=== PATIENT | female | born 1960 | race Two or more races ===

== ENCOUNTER 2022-09-30 17:52 | Inpatient (IN) | payer MEDICARE, OTHER ==
[~2022-09-30] VITALS: Ht 157.5 cm; Wt 98.0 kg
[2022-09-30 18:23] LABS: Basophils # (auto) 0 10 ^3/uL (0-0.2); Basophils % (auto) 0.3 % (0.0-2.0); Eosinophils # (auto) 0 10 ^3/uL (0-0.8); Eosinophils % (auto) 0.1 % (0.0-7.0); Hematocrit 41.6 % (36.0-46.0); Hemoglobin 13.4 g/dL (12.2-16.2); Lymphocytes # (auto) 0.3 10 ^3/uL (0.4-5.4); Lymphocytes % (auto) 2.1 % (10.0-50.0); Mean Corpuscular Hemoglobin 28.2 pg (28.0-32.0); Mean Corpuscular Hgb Conc. 32.2 g/dL (32.0-36.0); Mean Corpuscular Volume 87.7 fL (80.0-100.0); Monocytes % (auto) 6.7 % (0.0-12.0); Neutrophils # (auto) 13.8 10 ^3/uL (1.6-8.6); Neutrophils % (auto) 90.8 % (37.0-80.0); Red Blood Cells 4.74 10^6/uL (4.0-5.20); Red Cell Distribution Width 16.2 % (11.8-14.3); White Blood Cell 15.2 10^3/uL (4.4-10.8)
[2022-09-30 18:40] LABS: INR 1.08 (0.9-1.15); Partial Thromboplastin Time 26.1 SEC (24.5-34.5); Prothrombin Time 11.3 sec (9.3-11.8)
[2022-09-30 18:41] LABS: Albumin 2.6 g/dL (3.4-5.0); BUN/Creatinine Ratio 17.1 (10.0-20.0); Calcium 8.7 mg/dL (8.5-10.1); Magnesium 1.9 mg/dL (1.6-2.6); Potassium 4.3 mmol/L (3.5-5.1)
[2022-09-30 18:44] LABS: Bilirubin, Total 0.9 mg/dL (0.2-1.0); Total Protein 6.1 g/dL (6.4-8.2)
[2022-09-30 19:08] VITALS: PULSE 84; RESP 18; O2SAT 95
[2022-09-30] MEDS ORDERED: SODIUM CHLORIDE 0.9% 2,750 ML IV ONE (19:15)
[2022-09-30] MEDS ORDERED: ALBUTEROL SULF 2.5 MG/0.5ML(0.5%) NEB SOLN NEB ONE (19:15)
[2022-09-30] MEDS ORDERED: InsuLIN REG 1unit/0.01ml Soln (100units/ml) IV ONE (19:15)
[2022-09-30] MEDS ORDERED: DexAMETHasone SOD PHOS 10MG/1ML VIAL INJ IV ONE (19:30)
[2022-09-30] MEDS ORDERED: VANCOMYCIN PER PHARMACY 0 MG IV SCH (19:30)
[2022-09-30 19:58] LABS: Blood Alcohol < 3.0 mg/dL (<10)
[2022-09-30 20:59] LABS: Base Excess 1.6 mmol/L (-2.0-2.0)
[2022-09-30 21:39] LABS: Lactic Acid w/Reflex 2.4 mmol/L (0.4-2.0)
[2022-09-30] MEDS ORDERED: ACETAMINOPHEN 325 MG TAB PO PRN (22:15)
[2022-09-30] MEDS ORDERED: ONDANSETRON HCL 4 MG/2 ML VIAL IV PRN (22:15)
[2022-09-30] MEDS ORDERED: DOCUSATE SOD 100 MG CAP PO PRN (22:15)
[2022-09-30] MEDS ORDERED: DEXTROSE (50%) 50ML SYRG IV PRN (22:15)
[2022-09-30] MEDS: VANCOMYCIN 1GM/250ML 250 ML IV SCH (22:44)
[2022-09-30] MEDS: SODIUM CHLORIDE 0.9% 1,000 ML IV SCH (22:44)
[2022-09-30] MEDS: PIPERACILLIN-TAZOB 3.375GM 100 ML IV SCH (23:35)
[2022-09-30] MEDS ORDERED: NITROGLYCERIN 0.4 MG SL TAB SL PRN (23:45)
[2022-09-30] MEDS ORDERED: MORPHINE SULFATE INJ 2 MG/ml SYRG IV PRN (23:45)
[2022-09-30] MEDS ORDERED: ALBUMIN 25% 100 ML IV ONE (23:45)
[2022-10-01] MEDS ORDERED: DexAMETHasone INJECTION 10 MG in SODIUM CHL 3% 500 ML IV SCH ×2
[2022-10-01] MEDS: ACCU-CHEK COMFORT CURVE STRIP VI SCH ×7 (00:18→23:57)
[2022-10-01] MEDS: InsuLIN REG 1unit/0.01ml Soln (100units/ml) SC SCH ×7 (00:18→23:58)
[2022-10-01 03:00] VITALS: PULSE 85; RESP 19; O2SAT 92
[2022-10-01] MEDS: INSULIN LANTUS (GLARGINE) 1 /0.01ml (100units/ml) SC SCH ×3 (05:33→22:50)
[2022-10-01 06:26] LABS: Basophils # (auto) 0 10 ^3/uL (0-0.2); Eosinophils # (auto) 0 10 ^3/uL (0-0.8); Hemoglobin 13.3 g/dL (12.2-16.2); Lymphocytes # (auto) 0.2 10 ^3/uL (0.4-5.4); Lymphocytes % (auto) 1.4 % (10.0-50.0); Mean Corpuscular Hemoglobin 28.6 pg (28.0-32.0); Mean Corpuscular Hgb Conc. 32.3 g/dL (32.0-36.0); Mean Corpuscular Volume 88.4 fL (80.0-100.0); Monocytes # (auto) 0.2 10 ^3/uL (0-1.3); Monocytes % (auto) 1.5 % (0.0-12.0); Neutrophils # (auto) 14.9 10 ^3/uL (1.6-8.6); Neutrophils % (auto) 97.1 % (37.0-80.0); Red Blood Cells 4.64 10^6/uL (4.0-5.20); Red Cell Distribution Width 16.4 % (11.8-14.3); White Blood Cell 15.3 10^3/uL (4.4-10.8)
[2022-10-01 06:43] LABS: Albumin 2.9 g/dL (3.4-5.0); Potassium 4.1 mmol/L (3.5-5.1)
[2022-10-01 06:46] LABS: Bilirubin, Total 0.7 mg/dL (0.2-1.0); Total Protein 7.1 g/dL (6.4-8.2)
[2022-10-01 08:01] VITALS: PULSE 70; RESP 20; O2SAT 94
[2022-10-01] MEDS ORDERED: [UNRECOGNIZED DRUG - CODE] PO (09:33)
[2022-10-01] MEDS ORDERED: MYCO500T PO (09:33)
[2022-10-01] MEDS: PIPERACILLIN-TAZOB 3.375GM 100 ML IV SCH ×2 (09:42→14:01)
[2022-10-01] MEDS: LEVOTHYROXINE SODIUM 25 MCG TAB PO SCH (09:42)
[2022-10-01] MEDS ORDERED: TACROLIMUS 0.5 MG CAP PO SCH (10:00)
[2022-10-01] MEDS: SODIUM CHLORIDE 0.9% 1,000 ML IV SCH ×2 (10:12→15:10)
[2022-10-01] MEDS: HEPARIN SODIUM (PORCINE) 5000 UNITS/ML 1ML VIAL SC SCH ×2 (10:16→23:38)
[2022-10-01] MEDS: DexAMETHasone SOD PHOS 10MG/1ML VIAL INJ IV SCH (10:16)
[2022-10-01] MEDS ORDERED: AML5T PO (10:39)
[2022-10-01] MEDS ORDERED: METO25TA93 PO (10:39)
[2022-10-01] MEDS ORDERED: TRAM50TA2 PO (10:39)
[2022-10-01] MEDS ORDERED: GABA250S7 PO (10:39)
[2022-10-01] MEDS ORDERED: PANT1INJ3 IV (10:39)
[2022-10-01] MEDS ORDERED: ATOR40TA52 PO (10:39)
[2022-10-01] MEDS ORDERED: PRED1PAK8 PO (10:39)
[2022-10-01 10:49] LABS: Amphetamine Screen, Urine NEGATIVE (NEGATIVE); Barbiturate Scree,Urine NEGATIVE (NEGATIVE); Benzodiazephine Screen, Urine NEGATIVE (NEGATIVE); Cannabinoid Screen, Urine NEGATIVE (NEGATIVE); Cocaine Screen, Urine NEGATIVE (NEGATIVE); Opiate Scree,Urine NEGATIVE (NEGATIVE); Phencyclidine Screen, Urine NEGATIVE (NEGATIVE)
[2022-10-01] MEDS: MYCOPHENOLATE 500 MG TAB PO SCH ×2 (11:21→23:44)
[2022-10-01] MEDS: TACROLIMUS 0.5 MG CAP PO SCH ×2 (11:21→23:44)
[2022-10-01 12:05] LABS: Urine Bacteria FEW /hpf (None Seen); Urine Blood 2+ /uL (Negative); Urine Budding Yeast LOADED /hpf (None Seen); Urine Clarity HAZY (Clear); Urine Color Yellow (Yellow); Urine Mucus FEW (None Seen); Urine Protein, UAD 1+ (Negative); Urine Specific Gravity 1.018 (1.001-1.035); Urine Urobilinogen Normal (Negative); Urine WBC 136 /hpf (0 - 5); Urine pH 5.5 (5.0-8.0)
[2022-10-01 19:50] VITALS: PULSE 77; RESP 18; O2SAT 97
[2022-10-01] MEDS: VANCOMYCIN 1GM/250ML 250 ML IV SCH (23:32)
[2022-10-02] VITALS (8 sets, daily range): BP systolic 129–142; BP diastolic 50–77; PULSE 69–80; RESP 18–20; TEMP 97.8–98.2; O2SAT 92–98
[2022-10-02] MEDS: PIPERACILLIN-TAZOB 3.375GM 100 ML IV SCH ×3 (01:29→16:59)
[2022-10-02] MEDS: SODIUM CHLORIDE 0.9% 1,000 ML IV SCH ×3 (02:40→19:20)
[2022-10-02] MEDS: ACCU-CHEK COMFORT CURVE STRIP VI SCH ×5 (04:25→20:00)
[2022-10-02] MEDS: InsuLIN REG 1unit/0.01ml Soln (100units/ml) SC SCH ×6 (04:27→23:57)
[2022-10-02 05:50] LABS: Calcium 9.3 mg/dL (8.5-10.1)
[2022-10-02 05:52] LABS: BUN/Creatinine Ratio 23.7 (10.0-20.0)
[2022-10-02] MEDS: LEVOTHYROXINE SODIUM 25 MCG TAB PO SCH (06:12)
[2022-10-02] MEDS: DexAMETHasone SOD PHOS 10MG/1ML VIAL INJ IV SCH (08:59)
[2022-10-02] MEDS: HEPARIN SODIUM (PORCINE) 5000 UNITS/ML 1ML VIAL SC SCH ×2 (09:13→21:55)
[2022-10-02] MEDS: INSULIN LANTUS (GLARGINE) 1 /0.01ml (100units/ml) SC SCH ×2 (09:14→22:00)
[2022-10-02] MEDS: TACROLIMUS 0.5 MG CAP PO SCH ×2 (10:21→21:56)
[2022-10-02] MEDS: MYCOPHENOLATE 500 MG TAB PO SCH ×2 (10:21→21:56)
[2022-10-02] MEDS ORDERED: hydrALAZINE HCL 20 MG/ML VL IV PRN (18:00)
[2022-10-02] MEDS: ATORVASTATIN 20 MG TAB PO SCH (18:01)
[2022-10-02] MEDS: METOPROLOL SUCCINATE XL 50 MG TAB PO SCH (21:57)
[2022-10-02] MEDS: ACETAMINOPHEN 325 MG TAB PO PRN (21:57)
[2022-10-02] MEDS: VANCOMYCIN 1GM/250ML 250 ML IV SCH (22:00)
[2022-10-03] VITALS (7 sets, daily range): BP systolic 119–160; BP diastolic 39–95; PULSE 63–68; RESP 16–18; TEMP 97.3–97.7; O2SAT 93–96
[2022-10-03] MEDS: PIPERACILLIN-TAZOB 3.375GM 100 ML IV SCH ×3 (01:00→17:26)
[2022-10-03] MEDS: InsuLIN REG 1unit/0.01ml Soln (100units/ml) SC SCH ×5 (04:00→20:00)
[2022-10-03] MEDS: ACCU-CHEK COMFORT CURVE STRIP VI SCH ×6 (04:00→20:00)
[2022-10-03] MEDS: LEVOTHYROXINE SODIUM 25 MCG TAB PO SCH (06:01)
[2022-10-03] MEDS: MYCOPHENOLATE 500 MG TAB PO SCH ×2 (09:17→21:35)
[2022-10-03] MEDS: TACROLIMUS 0.5 MG CAP PO SCH ×2 (09:18→21:35)
[2022-10-03] MEDS: amLODIPine BESYLATE 5 MG TAB PO SCH (09:19)
[2022-10-03] MEDS: HEPARIN SODIUM (PORCINE) 5000 UNITS/ML 1ML VIAL SC SCH ×2 (09:29→21:43)
[2022-10-03] MEDS: INSULIN LANTUS (GLARGINE) 1 /0.01ml (100units/ml) SC SCH ×2 (09:30→21:43)
[2022-10-03 09:57] LABS: Basophils # (auto) 0 10 ^3/uL (0-0.2); Basophils % (auto) 0.2 % (0.0-2.0); Eosinophils # (auto) 0 10 ^3/uL (0-0.8); Eosinophils % (auto) 0.1 % (0.0-7.0); Lymphocytes # (auto) 0.4 10 ^3/uL (0.4-5.4); Lymphocytes % (auto) 3.6 % (10.0-50.0); Mean Corpuscular Hemoglobin 28.4 pg (28.0-32.0); Mean Corpuscular Hgb Conc. 32.6 g/dL (32.0-36.0); Mean Corpuscular Volume 87.1 fL (80.0-100.0); Monocytes # (auto) 0.7 10 ^3/uL (0-1.3); Monocytes % (auto) 6.2 % (0.0-12.0); Neutrophils # (auto) 10.1 10 ^3/uL (1.6-8.6); Neutrophils % (auto) 89.9 % (37.0-80.0); Red Blood Cells 4.93 10^6/uL (4.0-5.20); Red Cell Distribution Width 16.3 % (11.8-14.3); White Blood Cell 11.3 10^3/uL (4.4-10.8)
[2022-10-03] MEDS ORDERED: traMADol HCL 50 MG TAB PO SCH (10:00)
[2022-10-03] MEDS ORDERED: predniSONE 5 MG TAB PO SCH (10:00)
[2022-10-03] MEDS ORDERED: MYCOPHENOLATE 500 MG TAB PO SCH (10:00)
[2022-10-03 10:11] LABS: Potassium 4.5 mmol/L (3.5-5.1)
[2022-10-03] MEDS: SODIUM CHLORIDE 0.9% 1,000 ML IV SCH (11:43)
[2022-10-03 12:40] LABS: Hepatitis B Surface Antigen Negative (Negative); Hepatitis C Antibody Negative (Negative)
[2022-10-03] MEDS: ATORVASTATIN 20 MG TAB PO SCH (17:26)
[2022-10-03] MEDS: METOPROLOL SUCCINATE XL 50 MG TAB PO SCH (20:00)
[2022-10-04] VITALS (7 sets, daily range): BP systolic 107–145; BP diastolic 58–74; PULSE 63–74; RESP 17–19; TEMP 97.6–98.3; O2SAT 90–94
[2022-10-04] MEDS: PIPERACILLIN-TAZOB 3.375GM 100 ML IV SCH ×3 (01:00→17:17)
[2022-10-04] MEDS: InsuLIN REG 1unit/0.01ml Soln (100units/ml) SC SCH ×6 (04:00→20:00)
[2022-10-04] MEDS: ACCU-CHEK COMFORT CURVE STRIP VI SCH ×6 (04:00→20:00)
[2022-10-04] MEDS: LEVOTHYROXINE SODIUM 25 MCG TAB PO SCH (05:22)
[2022-10-04] MEDS: amLODIPine BESYLATE 5 MG TAB PO SCH (09:09)
[2022-10-04] MEDS: MYCOPHENOLATE 500 MG TAB PO SCH ×2 (09:09→22:23)
[2022-10-04] MEDS: TACROLIMUS 0.5 MG CAP PO SCH ×2 (09:09→22:23)
[2022-10-04] MEDS: HEPARIN SODIUM (PORCINE) 5000 UNITS/ML 1ML VIAL SC SCH ×2 (09:17→22:25)
[2022-10-04] MEDS: INSULIN LANTUS (GLARGINE) 1 /0.01ml (100units/ml) SC SCH ×2 (09:18→22:26)
[2022-10-04] MEDS: ATORVASTATIN 20 MG TAB PO SCH (17:17)
[2022-10-04] MEDS: METOPROLOL SUCCINATE XL 50 MG TAB PO SCH (20:00)
[2022-10-04] MEDS: HYDROcodone-ACET 5/325MG TAB PO PRN (22:39)
[2022-10-05] MEDS: PIPERACILLIN-TAZOB 3.375GM 100 ML IV SCH ×3 (01:00→17:00)
[2022-10-05] MEDS: ACCU-CHEK COMFORT CURVE STRIP VI SCH ×5 (04:00→16:15)
[2022-10-05] MEDS: InsuLIN REG 1unit/0.01ml Soln (100units/ml) SC SCH ×5 (04:00→17:27)
[2022-10-05 05:00] VITALS: BP 142/73; PULSE 63; RESP 20; TEMP 98; O2SAT 93
[2022-10-05] MEDS: HYDROcodone-ACET 5/325MG TAB PO PRN (05:33)
[2022-10-05] MEDS: LEVOTHYROXINE SODIUM 25 MCG TAB PO SCH (06:09)
[2022-10-05 08:00] VITALS: PULSE 61; PULSE 62; RESP 17; O2SAT 93
[2022-10-05 08:30] VITALS: BP 143/74; PULSE 60; RESP 19; TEMP 97.7; O2SAT 92
[2022-10-05] MEDS: MYCOPHENOLATE 500 MG TAB PO SCH (09:37)
[2022-10-05] MEDS: amLODIPine BESYLATE 5 MG TAB PO SCH (09:37)
[2022-10-05] MEDS: TACROLIMUS 0.5 MG CAP PO SCH (09:38)
[2022-10-05] MEDS: HEPARIN SODIUM (PORCINE) 5000 UNITS/ML 1ML VIAL SC SCH (09:42)
[2022-10-05] MEDS: INSULIN LANTUS (GLARGINE) 1 /0.01ml (100units/ml) SC SCH (09:43)
[2022-10-05 10:30] VITALS: BP 147/68
[2022-10-05 14:02] VITALS: BP 173/74; PULSE 68; TEMP 36.5
[2022-10-05] MEDS: ACETAMINOPHEN 325 MG TAB PO PRN (17:23)
[2022-10-06] MEDS ORDERED: PIPE1INJ IV (07:40)
[2022-10-06] MEDS ORDERED: FLUC200T PO (07:40)
== END 2022-10-05 17:48 | DRG 682 ==
LOC: ER 17:52 → EDBD 17:52 → TELE 23:34 → TELE-CENTR 10-01 22:14
PROVIDERS: ADMIT Internal Medicine; ATTEND Internal Medicine
DX: N17.9 Acute kidney failure, unspecified (principal); E11.00 Type 2 diabetes mellitus with hyperosmolarity without nonketotic hyperglycemic-hyperosmolar coma (NKHHC); G93.41 Metabolic encephalopathy; N39.0 Urinary tract infection, site not specified; Z94.0 Kidney transplant status; T86.19 Other complication of kidney transplant; Z91.199 Patient's noncompliance with other medical treatment and regimen due to unspecified reason; D72.829 Elevated white blood cell count, unspecified; E11.22 Type 2 diabetes mellitus with diabetic chronic kidney disease; E88.09 Other disorders of plasma-protein metabolism, not elsewhere classified; E11.65 Type 2 diabetes mellitus with hyperglycemia; E86.0 Dehydration; B96.1 Klebsiella pneumoniae [K. pneumoniae] as the cause of diseases classified elsewhere; F10.129 Alcohol abuse with intoxication, unspecified; Y83.0 Surgical operation with transplant of whole organ as the cause of abnormal reaction of the patient, or of later complication, without mention of misadventure at the time of the procedure; Y92.89 Other specified places as the place of occurrence of the external cause; Z88.8 Allergy status to other drugs, medicaments and biological substances; I13.10 Hypertensive heart and chronic kidney disease without heart failure, with stage 1 through stage 4 chronic kidney disease, or unspecified chronic kidney disease; N18.30 Chronic kidney disease, stage 3 unspecified
CPT/HCPCS: 36415; 36600; 70450; 71045; 78582; 80048; 80053; 80202; 80307; 80320; 81001; 82010; 82553; 82570; 82805; 82962; 83036; 83605; 83735; 83880; 83970; 84100; 84156; 84443; 84484; 85025; 85379; 85610; 85730; 86803; 86850; 86900; 86901; 87040; 87077; 87086; 87088; 87186; 87340; 93005; 93976; 94640; 96365; 96375; 97110; 97116; 97163; 97530; 99291; G0378; J1100; J1815; J2405; J2543; J7517; P9047

== ENCOUNTER 2024-11-05 10:50 | Inpatient (IN) | payer OTHER, MEDICAID ==
[~2024-11-05] VITALS: Ht 160 cm; Wt 102.4 kg
[~2024-11-05 10:50] MED LIST: AML5T PO; ATOR40TA52 PO; FLUC200T PO; GABA250S7 PO; METO25TA93 PO; MYCO500T PO; PIPE1INJ IV; PRED1PAK8 PO; TRAM50TA2 PO; [UNRECOGNIZED DRUG - CODE] PO
--- NOTE | 2024-11-05 10:55 | ECG ---
[facility] Test Date: 2024-11-05 Test Time: 10:54:32 Pat Name: PEDRO MARSHALL Department: ED Room: 0216T Gender: F Tugboat Engineer: EDWINA : 1960 Requested By: JOSE DANIEL CONKLIN Order Number: [id number] Reading MD: Cipriano Hankins Measurements Intervals [place] Rate: 66 P: 40 CA: 162 QRS: -52 QRSD: 106 T: 78 QT: 374 QTc: 392 Interpretive Statements Sinus rhythm Left atrial enlargement Left anterior fascicular block Low voltage, precordial leads RSR' in V1 or V2, right VCD or RVH Consider anterior infarct ST elevation, consider inferior injury Electronically Signed On 11-06-2024 18:47:03 PDT by Cipriano Hankins Please click the below link to view image of tracing.
--- NOTE | 2024-11-05 11:01 | ED.PDOC ---
History of Present Illness HPI Comments 63-year-old female who comes in with chief complaint of generalized weakness as well as nausea and vomiting. The patient states that she went to her regular appointment at the [facility] today and there they found with the patient's oxygen saturation was somewhat low. When the paramedics arrived, the patient was saturating in the high 80s. They did place the patient on 2 L of oxygen nasal cannula and the oxygen saturation went up to around 95. She has been having some dizziness as well as body aches x1 week. She denies any fever or chills. EN route, the patient's Accu-Chek was 131. Time Seen by MD: 10:54 Primary Care Provider: Possibly POLSON versus Medicare Reviewed Notes: Nurses Notes, Pharmaceutical Plant Operator Notes, Medications, Allergies (Allergies to ibuprofen) Allergies: Coded Allergies: Ibuprofen (Verified Allergy, Unknown, 09/30/22) Home Meds Active Scripts Piperacillin Sodium-Tazobactam (Piperacillin Sodium/Tazob 3-0.375 gm) 1 Inj Inj, 1 INJ IV q8, #21 INJ Prov:LEXY CARTER MD 10/06/22 Fluconazole (Diflucan) 200 Mg Tab, 1 TAB PO DAILY, #7 TAB Prov:LEXY CARTER MD 10/06/22 Reported Medications Prednisone (Prednisone) 5 Mg Rogelio, 5 MG PO DAILY 10/01/22 Metoprolol Succinate (Metoprolol Succinate Er) 25 Mg Tab, 1 TAB PO DAILY, #30 TAB 5 Refills 10/01/22 Amlodipine Besylate (NORVASC TABLET) 5 Mg Tb, 1 TAB PO DAILY, #30 TAB 5 Refills 10/01/22 Tramadol Hcl (Tramadol Hcl) 50 Mg Tab, 50 MG PO, TAB 10/01/22 Atorvastatin Calcium (ATORVASTATIN CALCIUM) 40 Mg Tab, 1 TAB PO QPM, #90 TAB 3 Refills 10/01/22 Gabapentin (GABAPENTIN) 250 Mg/5 Ml Sylvia, 250 MG PO, ML 10/01/22 Mycophenolate Mofetil (Cellcept) 500 Mg Tab, 500 MG PO, TAB 10/01/22 Tacrolimus (Prograf) 0.2 Mg Gra, 0.2 MG PO, GRA 10/01/22 Information Source: Patient, Emergency Med Personnel Mode of Arrival: EMS Severity: Moderate Timing: Days Duration: Since onset Prehospital treatment: 12 Lead EKG, Accucheck (131), Waiter/Waitress Counter, IVF, Oxygen Associated signs and symptoms The patient has a associated dizziness with the body aches as well as nausea vomiting Past Medical History PAST MEDICAL HISTORY: CKF, DM, High Lipids, HTN Surgical History: Surgical History (Other): Renal transplant, right arm fistula for previous dialysis QUARRY BOSS History: No Pertinent QUARRY BOSS History Family History Family History: Family hx of Cancer Social History Smoker: Non-Smoker Alcohol: Denies ETOH Use Drugs: Denies Drug Use Lives In: Home Constitutional: reports: weakness, others (Body aches); denies: chills, diaphoresis, fatigue, fever, malaise, sweats EENTM: denies: blurred vision, double vision, ear bleeding, ear discharge, ear drainage, ear pain, ear ringing, eye pain, eye redness, hearing loss, mouth pain, mouth swelling, nasal discharge, nose bleeding, nose congestion, nose pain, photophobia, tearing, throat pain, throat swelling, voice changes, others Respiratory: denies: cough, hemoptysis, orthopnea, SOB at rest, shortness of breath, SOB with excertion, stridor, wheezing, others Cardiovascular: denies: chest pain, dizzy spells, diaphoresis, Dyspnea on exertion, edema, irregular heart beat, left arm pain, lightheadedness, palpitations, PND, syncope, others Gastrointestinal: reports: nausea, vomiting; denies: abdomen distended, abdominal pain, blood streaked bowels, constipated, diarrhea, dysphagia, difficulty swallowing, hematemesis, melena, poor appetite, poor fluid intake, rectal bleeding, rectal pain, others Genitourinary: denies: abnormal vagina bleeding, burning, dyspareunia, dysuria, flank pain, frequency, hematuria, incontinence, pain, , vagina discharge, urgency, others Neurological: reports: dizziness; denies: fainting, headache, left sided numbness, left sided weakness, numbness, paresthesia, pre-existing deficit, right sided numbness, right sided weakness, seizure, speech problems, tingling, tremors, weakness, others Musculoskeletal: denies: back pain, gout, joint pain, joint swelling, muscle pain, muscle stiffness, neck pain, others Integumetry: denies: bruises, change in color, change in hair/nails, dryness, laceration, lesions, lumps, rash, wounds, others Allergic/Immunocompromised: denies: Difficulty Healing, Frequent Infections, Hives, Itching, others Hematologic/Lymphatic: denies: anemia, blood clots, easy bleeding, easy bruising, swollen glands, others Endocrine: denies: excessive hunger, excessive sweating, excessive thirst, excessive urination, flushing, intolerance to cold, intolerance to heat, unexplained weight gain, unexplained weight loss, others Psychiatric: denies: anxiety, bipolar disorder, depression, hopeless, panic disorder, schizophrenia, sleepless, suicidal, others Physical Exam General Appearance: Moderate Distress HEENT: Pale Conjuntivae (L), Pale Conjuntivae (R), Pharynx Normal, TMs Normal Neck: Full Range of Motion, Non-Tender, Normal, Normal Inspection Respiratory: Chest Non-Tender, Decreased Breath Sounds, Lungs Clear, Respiratory Distress Cardiovascular: No Edema, No JVD, No Murmur, No Gallop, Normal Peripheral Pul ses, Regular Rate/Rhythm Breast Exam: Deferred Gastrointestinal: No Organomegaly, Non Tender, No Pulsatile Mass, Normal Bowel Sounds, Soft Genitalia: Deferred Pelvic: Deferred Rectal: Deferred Extremities: No calf tenderness, Normal capillary refill, Normal inspection, Normal range of motion, Non-tender, No pedal edema Musculoskeletal : Apperance: Normal Neurologic: Alert, emergency room clerk II-XII nml as Tested, Motor Weakness, Normal Affect, Normal Mood, No Sensory Deficits Cerebellar Function: Normal Reflexes: Normal Skin: Dry, Pallor, Warm Lymphatic: No Adenopathy Was a procedure done? Was a procedure done?: No EKG EKG : Pulse Rate (adult): 66 [place]: Normal Cardiac Rhythm: NSR Hypertrophy: LAE ST: Nonsp Differential Dx Considerations may include: Generalized weakness, electrolyte imbalance, dehydration, renal failure, pneumonia, COVID-19 X-Ray, Labs, Meds, VS Vital Signs Date Time Temp Pulse Resp B/P (MAP) Pulse Ox O2 Delivery O2 Flow Rate FiO2 11/05/24 11:05 97 Nasal Cannula* 2 28 11/05/24 11:01 66 11/05/24 11:00 98.8 71 16 128/76 97 98.8 11/05/24 10:54 66 Lab Test 11/05/24 12:31 11/05/24 11:19 Range/Units Troponin I High Sensitivity 13 14 </=34 ng/L White Blood Count 9.4 4.4-10.8 10^3/uL Red Blood Count 4.49 4.0-5.20 10^6/uL Hemoglobin 13.3 12.2-16.2 g/dL Hematocrit 39.9 36.0-46.0 % Mean Corpuscular Volume 89.0 80.0-100.0 fL Mean Corpuscular Hemoglobin 29.6 28.0-32.0 pg Mean Corpuscular Hemoglobin Concent 33.2 32.0-36.0 g/dL Red Cell Distribution Width 15.4 H 11.8-14.3 % Platelet Count 158 140-450 10^3/uL Mean Platelet Volume 10.0 6.9-10.8 fL Neutrophils (%) (Auto) 75.3 37.0-80.0 % Lymphocytes (%) (Auto) 10.6 10.0-50.0 % Monocytes (%) (Auto) 12.8 H 0.0-12.0 % Eosinophils (%) (Auto) 0.8 0.0-7.0 % Basophils (%) (Auto) 0.5 0.0-2.0 % Neutrophils # (Auto) 7.1 1.6-8.6 10 ^3/uL Lymphocytes # (Auto) 1.0 0.4-5.4 10 ^3/uL Monocytes # (Auto) 1.2 0-1.3 10 ^3/uL Eosinophils # (Auto) 0.1 0-0.8 10 ^3/uL Basophils # (Auto) 0 0-0.2 10 ^3/uL Nucleated Red Blood Cells 0.0 % D-Dimer, Quantitative 1.93 H 0.0-0.49 mg/L FEU Sodium Level 137 136-145 mmol/L Potassium Level 4.1 3.5-5.1 mmol/L Chloride Level 103 98-107 mmol/L Carbon Dioxide Level 24 20-31 mmol/L Anion Gap 10 5-15 Blood Urea Nitrogen 21 9-23 mg/dL Creatinine 1.41 H 0.550-1.02 mg/dL Glomerular Filtration Rate Calc 42 >90 mL/min BUN/Creatinine Ratio 14.9 10.0-20.0 Serum Glucose 156 H 74-106 mg/dL Calcium Level 8.9 8.7-10.4 mg/dL IV Hep-Lock was established The patient's CBC is within normal limits The chemistry panel is within normal limits except for a creatinine of 1.41 The D-dimer is elevated at 1.93 The troponin level is negative The repeat troponin level is also negative At this time, the patient is being admitted to the hospitalist. We did contact [facility] and explain to them that we are trying to rule out PE on this patient. We do not feel comfortable doing a CAT scan with contrast secondary to the patient's previous kidney transplant. We are going to order a V/Q scan but the patient will be admitted at this time. [facility] did give us authorization for admission. The authorization #[id number] We discussed the findings with the patient and they are in agreement with the management. The patient is admitted at this time Images Reviewed?: Images reviewed and evaluated by me Time of 1ST Reevaluation: 11:01 Reevaluation 1ST: Unchanged Patient Education/Counseling: Diagnosis, Treatment, Prognosis Family Education/Counseling: No Family Present SEPSIS Sepsis Screen Physician Orders Chest Portable (11/05/24 10:52) Urinalysis (11/05/24 10:52) Heplock Iv (11/05/24 10:52) Waiter/Waitress Counter (11/05/24 10:52) Blood Pressure (11/05/24 10:52) Pulse Oximetry (11/05/24 10:52) Covid19 Antigen Maribell (11/05/24 ) Troponin-I Hs (11/05/24 13:52) Electrocardigram (11/05/24 11:52) Electrocardigram (11/05/24 13:52) Nm Vq Scan (11/05/24 12:39) Vital Signs Date Time Temp Pulse Resp B/P (MAP) Pulse Ox O2 Delivery O2 Flow Rate FiO2 11/05/24 11:05 97 Nasal Cannula* 2 28 11/05/24 11:01 66 11/05/24 11:00 98.8 71 16 128/76 97 98.8 11/05/24 10:54 66 Laboratory Tests Test 11/05/24 11:19 White Blood Count 9.4 10^3/uL (4.4-10.8) Departure 1 Departure Time of Disposition: 13:48 Impression: Primary Impression: Acute respiratory failure Qualified Codes: J96.01 - Acute respiratory failure with hypoxia Additional Impression: Elevated d-dimer Disposition: 09 ADMITTED INPATIENT Admit to: Tele Condition: Fair Critical Care Note Critical Care Time?: Yes (45 min-critical care time only) Stability Stability form required: Yes Unstable for transfer: Telemetry monitoring (Telemetry monitoring required), ED Physician Assesment (Clinical assesment) Heart Score Heart Score: Heart Score Response (Comments) Value History N/A 0 EKG N/A 0 Age N/A 0 Risk Factors N/A 0 Troponin N/A 0 Total 0 JOSE DANIEL CONKLIN MD Nov 05, 2024 11:01
--- NOTE | 2024-11-05 11:41 | DVH ---
CHEST RADIOGRAPH Indication: weakness Technique: Single frontal view of the chest was obtained COMPARISON: XY CHEST PORTABLE on DOS: 09/30/22 FINDINGS: Lines and Tubes: None Lungs: Congestion Pleura: No effusion. No pneumothorax. Cardiomediastinal contours: Unremarkable Bones: Unremarkable IMPRESSION: Increased interstital prominence. This may represent pulmonary vascular congestion and/or viral pneum onia. Clinical correlation advised.
[2024-11-05 12:01] LABS: Hematocrit 39.9 % (36.0-46.0); Hemoglobin 13.3 g/dL (12.2-16.2); Mean Corpuscular Hemoglobin 29.6 pg (28.0-32.0); Mean Corpuscular Volume 89.0 fL (80.0-100.0); Nucleated Red Blood Cells % 0.0 %
[2024-11-05 12:09] LABS: Chloride 103 mmol/L (98-107); Potassium 4.1 mmol/L (3.5-5.1); Sodium 137 mmol/L (136-145)
[2024-11-05 12:10] LABS: Anion Gap 10 (5-15); Calcium 8.9 mg/dL (8.7-10.4); Carbon Dioxide 24 mmol/L (20-31)
[2024-11-05 12:15] LABS: BUN/Creatinine Ratio 14.9 (10.0-20.0); Blood Urea Nitrogen 21 mg/dL (9-23)
[2024-11-05 12:18] LABS: Glucose 156 mg/dL (74-106)
[2024-11-05] MEDS ORDERED: DOCUSATE SOD 100 MG CAP PO PRN (14:30)
[2024-11-05] MEDS ORDERED: ONDANSETRON HCL 4 MG/2 ML VIAL IV PRN (14:30)
[2024-11-05] MEDS ORDERED: DEXTROSE (50%) 50ML SYRG IV PRN (14:30)
--- NOTE | 2024-11-05 16:18 | DVHHP2 ---
History of Present Illness Reason for Visit: Acute respiratory failure History of Present Illness The patient is a 63-year-old female with past medical history of CKD F, diabetes mellitus, hyperlipidemia, and hypertension who presented to [facility] ED with complaint of generalized weakness. Patient reports she has been experiencing generalized weakness associated with nausea, vomiting, dizziness for the past one week. Patient states that she went to her regular appointment at the [facility] today and they found patient's oxygen saturation very low in the 80s, so EMS were called. When the paramedics arrived on the scene, the patient was saturating in the high 82 % and was placed on 2 L of oxygen via nasal cannula and the oxygen saturation went up to around 95 % EN route to our facility ED. patient was seen and evaluated in the ED, laboratory data shows WBC 9.4, platelets 158, sodium 137, potassium 4.1, BUN 21, creatinine 1.41, glucose 158, calcium 8.9, troponin 14, D-dimer 1.93, blood pressure 128/76, heart rate 66, temperature 98.8 F, O2 saturation 97% on oxygen. Chest x-ray revealing increased interstitial prominence; this may represent pulmonary vascular congestion and/or viral pneumonia. Please see medication orders section in the computer. On my assessment, patient denied chest pain, no headache, no dizziness, currently on oxygen, no nausea, no vomiting, no fever, no chills. Patient was admitted for further evaluation and medical management. Past Medical History CKF, DM, High Lipids, HTN Past Surgical History , Renal transplant, Right arm fistula for previous dialysis Family History Reviewed, noncontributory to the management of this case. Past Social History The patient lives at home, denies smoking, alcohol or illicit drugs abuse. Review of Systems Constitutional: Yes: Weakness; No: Fever, Chills, Sweats, Malaise, Other Eyes: No: Pain, Vision change, Conjunctivae inflammation, Eyelid inflammation, Other, Redness ENT: No: Ear pain, Ear discharge, Nose pain, Nose discharge, Nose congestion, Mouth pain, Mouth swelling, Throat pain, Throat swelling, Other Respiratory: No: Cough, Dry, Shortness of breath, SOB with excertion, Wheezing, Hemoptysis, Pleuritic Pain, Sputum, Wheezing, Other Cardiovascular: No: Chest Pain, Palpitations, Orthopnea, Paroxysmal Noc. Dyspnea, Edema, Lt Headedness, Other Gastrointestinal: Nausea, Vomiting; No: Abdominal Pain, Diarrhea, Constipation, Melena, Hematochezia, Other Genitourinary: No Dysuria, No Frequency, No Incontinence, No Hematuria, No Retention, No Other Musculoskeletal: No: other, neck pain, shoulder pain, arm pain, back pain, hand pain, leg pain, foot pain Skin: No: Rash, Lesions, Jaundice, Bruising, Other Neurological: Other (Dizziness); No: Weakness, Numbness, Incoordination, Change in speech, Confusion, Seizures Allergies: Coded Allergies: Ibuprofen (Verified Allergy, Unknown, 09/30/22) Medications Current Medications Medications Dose Ordered Sig/Marcello Route Start Time Stop Time Status Last Admin Dose Admin Amlodipine Besylate 5 mg DAILY PO 11/06/24 10:00 Atorvastatin Calcium 20 mg HS PO 11/05/24 22:00 Ceftriaxone Sodium 50 ml @ 100 mls/hr DAILY@09 IV 11/06/24 09:00 Azithromycin 250 ml @ 125 mls/hr DAILY IV 11/06/24 10:00 Tacrolimus 2 mg BID PO 11/05/24 22:00 Future Hold Diagnostic Test (Pha) 1 strip ACHS 11/05/24 17:00 Insulin Human Regular HS SC 11/05/24 22:00 Insulin Human Regular AC SC 11/05/24 17:00 Dextrose 50 ml UD PRN IV 11/05/24 14:30 Acetaminophen/ Hydrocodone Bitart 1 tab Q4HP PRN PO 11/05/24 14:30 Ondansetron HCl 4 mg Q4HP PRN IV 11/05/24 14:30 Docusate Sodium 100 mg BIDPRN PRN PO 11/05/24 14:30 Tramadol HCl 50 mg Q4HP PRN PO 11/05/24 14:30 Exam Vital Signs Vital Signs Date Time Temp Pulse Resp B/P (MAP) Pulse Ox O2 Delivery O2 Flow Rate FiO2 11/05/24 15:52 99.5 64 18 128/43 (71) 96 99.5 11/05/24 11:05 Nasal Cannula* 2 28 General Appearance: Alert, Oriented X3, Cooperative, No acute distress HEENT: Atraumatic, PERRLA, EOMI, Mucous membr. moist/pink Respiratory: Normal air movement Cardiovascular: Regular rate, Normal S1, Normal S2, No murmurs Abdominal: Normal bowel sounds, Soft, No tenderness, No hepatospenomegaly, No masses Extremities: No clubbing, No cyanosis, No edema, Normal pulses, No tenderness/swelling Skin: No rashes, No breakdown, No significant lesion Neuro: Normal speech, Normal tone, Sensation intact, Cranial nerves 3-12 NL, Reflexes 2+, Other (Generalized weakness) Psych/Mental Status: Mental status NL, Mood NL Labs/Xrays Labs Test 11/05/24 14:29 11/05/24 11:19 Range/Units Troponin I High Sensitivity 12 </=34 ng/L White Blood Count 9.4 4.4-10.8 10^3/uL Red Blood Count 4.49 4.0-5.20 10^6/uL Hemoglobin 13.3 12.2-16.2 g/dL Hematocrit 39.9 36.0-46.0 % Mean Corpuscular Volume 89.0 80.0-100.0 fL Mean Corpuscular Hemoglobin 29.6 28.0-32.0 pg Mean Corpuscular Hemoglobin Concent 33.2 32.0-36.0 g/dL Red Cell Distribution Width 15.4 H 11.8-14.3 % Platelet Count 158 140-450 10^3/uL Mean Platelet Volume 10.0 6.9-10.8 fL Neutrophils (%) (Auto) 75.3 37.0-80.0 % Lymphocytes (%) (Auto) 10.6 10.0-50.0 % Monocytes (%) (Auto) 12.8 H 0.0-12.0 % Eosinophils (%) (Auto) 0.8 0.0-7.0 % Basophils (%) (Auto) 0.5 0.0-2.0 % Neutrophils # (Auto) 7.1 1.6-8.6 10 ^3/uL Lymphocytes # (Auto) 1.0 0.4-5.4 10 ^3/uL Monocytes # (Auto) 1.2 0-1.3 10 ^3/uL Eosinophils # (Auto) 0.1 0-0.8 10 ^3/uL Basophils # (Auto) 0 0-0.2 10 ^3/uL Nucleated Red Blood Cells 0.0 % D-Dimer, Quantitative 1.93 H 0.0-0.49 mg/L FEU Sodium Level 137 136-145 mmol/L Potassium Level 4.1 3.5-5.1 mmol/L Chloride Level 103 98-107 mmol/L Carbon Dioxide Level 24 20-31 mmol/L Anion Gap 10 5-15 Blood Urea Nitrogen 21 9-23 mg/dL Creatinine 1.41 H 0.550-1.02 mg/dL Glomerular Filtration Rate Calc 42 >90 mL/min BUN/Creatinine Ratio 14.9 10.0-20.0 Serum Glucose 156 H 74-106 mg/dL Calcium Level 8.9 8.7-10.4 mg/dL PATIENT: JACI MARSHALLT: [id number] UNIT: [id number] : 1960 LOC: ER ROOM / BED: / AGE / SEX: 63 / F ADM STATUS: REG ER SERVICE 1052 ORDERING PHYSICIAN: JOSE DANIEL CONKLIN MD PROCEDURE(s): CXRP - CHEST PORTABLE REASON: weakness ORDER NUMBER(s): [id number], ACCESSION NUMBER(s): [id number] CHEST RADIOGRAPH Indication: weakness Technique: Single frontal view of the chest was obtained COMPARISON: XY CHEST PORTABLE on DOS: 09/30/22 FINDINGS: Lines and Tubes: None Lungs: Congestion Pleura: No effusion. No pneumothorax. Cardiomediastinal contours: Unremarkable Bones: Unremarkable IMPRESSION: Increased interstital prominence. This may represent pulmonary vascular congestion and/or viral pneumonia. Clinical correlation advised. SEPSIS Sepsis Screen Date sepsis recognized/suspect: Nov 05, 2024 Time Sepsis recognized/suspect: 1103 Recent Procedure: No On Antibiotic Therapy: No Respiratory Rate >20: No Heart Rate >90: No Temp<36 C (96.8 F) or >38.3 C: No SBP <90 or MAP <65 mmHG: No New Acute Mental Status Change: No Is the patient on CPAP, BIPAP,: No Physician Orders Chest Portable (11/05/24 10:52) Urinalysis (11/05/24 10:52) Heplock Iv (11/05/24 10:52) Mucker [place] (11/05/24 10:52) Blood Pressure (11/05/24 10:52) Pulse Oximetry (11/05/24 10:52) Covid19 Antigen Maribell (11/05/24 ) Electrocardigram (11/05/24 11:52) Electrocardigram (11/05/24 13:52) Nm Vq Scan (11/05/24 12:39) Consistent Carb(Ccho)Diabetes (11/05/24 Dinner) Amlodipine Tablet (Norvasc Tablet) (11/06/24 10:00) Atorvastatin (Lipitor) (11/05/24 22:00) Ceftriaxone 1gm/50ml D5w (Rocephin) (11/06/24 09:00) Azithromycin 500mg/ 250ml (Zithromax 50 (11/06/24 10:00) Azithromycin 500mg/ 250ml (Zithromax 50 (11/05/24 14:30) Tacrolimus (Prograf) (11/05/24 22:00) Glucose Blood (Accu-Chek Comfort Curve T (11/05/24 17:00) Insulin R (Human) (Insulin R) (11/05/24 22:00) Insulin R (Human) (Insulin R) (11/05/24 17:00) Dextrose 50% Syringe (11/05/24 14:30) Allergies (11/05/24 14:24) Code Status (11/05/24 14:24) Oxygen Per Hour (11/05/24 14:24) Hydrocodone-Acet 5/325mg Tab ([place] 5/32 (11/05/24 14:30) Ondansetron Hcl (Zofran) (11/05/24 14:30) Docusate Sodium Capsule (Colace Capsule) (11/05/24 14:30) Fall Risk Precautions In Place QSHIFT (11/05/24 14:24) Complete Blood Count (11/06/24 04:00) Comprehensive Metabolic Panel (11/06/24 04:00) Cardiac Diet-2gna,Lofat,Lochol (11/05/24 Dinner) Condition: Serious (11/05/24 14:24) Maintain Bed Rest (11/05/24 14:24) Sequential Compression Device (11/05/24 ) Tramadol Hcl (Ultram) (11/05/24 14:30) Pharmacy Clarification: (11/06/24 23:58) Admit (11/05/24 16:16) Nitroglycerin Sublingual (Ntrostat Subli (11/05/24 16:30) Morphine Sulfate Injection (11/05/24 16:30) Stat Ekg For Chest Pain (11/05/24 16:16) Notify Md Of Changes From Base (11/05/24 16:16) Spring Repairer Helper Hand For 24 Hours (11/05/24 16:16) Emergency Dysrhythmia Protocol (11/05/24 16:16) Rhythm Strips Once Every Shift (11/05/24 16:16) Oxygen By Nasal Cannula (11/05/24 16:16) Vital Signs Date Time Temp Pulse Resp B/P (MAP) Pulse Ox O2 Delivery O2 Flow Rate FiO2 11/05/24 15:52 99.5 64 18 128/43 (71) 96 99.5 11/05/24 11:05 97 Nasal Cannula* 2 28 11/05/24 11:01 66 11/05/24 11:00 98.8 71 16 128/76 97 98.8 11/05/24 10:54 66 Laboratory Tests Test 11/05/24 11:19 White Blood Count 9.4 10^3/uL (4.4-10.8) Assessment/Plan Assessment/Plan Acute respiratory failure Elevated d-dimer Acute on chronic renal failure Pneumonia, unspecified organisms Acute respiratory failure with hypoxia Diabetes mellitus with hyperglycemia Generalized weakness Plan 1. Admit to telemetry unit 2. Breathing treatment 3. Pain control management 4. IV antibiotic management 5. Management of fluids and electrolytes 6. Consultation for hospitalist 7. Diagnostic test chest x-ray 8. DVT prophylaxis-on SCDs 9. Repeat labs CBC, CMP in a.m. 10. Home medication reviewed and reconciled 11. Continue with current medical management 12. Treatment plan discussed with patient and RN. Patient verbalized understanding. Plan discussed with: Patient, Other (RN) My Orders Orders - HEMA DAILEY DNP Procedure Category Date Status Time Consistent DIET 11/05/24 Transmitted Carb(Ccho)Diabetes Dinner Amlodipine Tablet PHA 11/06/24 In Process (Norvasc Tablet) 10:00 Atorvastatin (Lipitor) PHA 11/05/24 In Process 22:00 Ceftriaxone 1gm/50ml PHA 11/06/24 In Process D5w (Rocephin) 09:00 Azithromycin 500mg/ PHA 11/06/24 In Process 250ml (Zithromax 50 10:00 Azithromycin 500mg/ PHA 11/05/24 In Process 250ml (Zithromax 50 14:30 Tacrolimus (Prograf) PHA 11/05/24 In Process 22:00 Glucose Blood PHA 11/05/24 In Process (Accu-Chek Comfort 17:00 Insulin R (Human) PHA 11/05/24 In Process (Insulin R) 22:00 Insulin R (Human) PHA 11/05/24 In Process (Insulin R) 17:00 Dextrose 50% Syringe PHA 11/05/24 In Process 14:30 Allergies JONN 11/05/24 In Process 14:24 Code Status CODE 11/05/24 Transmitted 14:24 Oxygen Per Hour RT 11/05/24 Transmitted 14:24 Hydrocodone-Acet PHA 11/05/24 In Process 5/325mg Tab ([place] 14:30 Ondansetron Hcl PHA 11/05/24 In Process (Zofran) 14:30 Docusate Sodium PHA 11/05/24 In Process Capsule (Colace 14:30 Fall Risk Precautions JONN 11/05/[address] 14:24 Complete Blood Count LAB 11/06/24 Verified 04:00 Comprehensive LAB 11/06/24 Verified Metabolic Panel 04:00 Cardiac DIET 11/05/24 Transmitted Diet-2gna,Lofat,Lochol Dinner Condition: Serious JONN 11/05/24 In Process 14:24 Maintain Bed Rest JONN 11/05/24 In Process 14:24 Sequential JONN 11/05/24 In Process Compression Device Tramadol Hcl (Ultram) PHA 11/05/24 In Process 14:30 Pharmacy JONN 11/06/24 In Process Clarification: 23:58 Admit ADMIT 11/05/24 Verified 16:16 Nitroglycerin [facility] 11/05/24 Verified Sublingual (Ntrostat 16:30 Morphine Sulfate PHA 11/05/24 Verified Injection 16:30 Stat Ekg For Chest [facility] [place] 11/05/24 Verified Pain 16:16 Notify Md Of Changes [facility] [place] 11/05/24 Verified From Base 16:16 Spring Repairer Helper Hand For [facility] [place] 11/05/24 Verified 24 Hours 16:16 Emergency Dysrhythmia [facility] [place] 11/05/24 Verified Protocol 16:16 Rhythm Strips Once [facility] [place] 11/05/24 Verified Every Shift 16:16 Oxygen By Nasal RT 11/05/24 Verified Cannula 16:16 Problem List: (1) Acute respiratory failure (2) Elevated d-dimer (3) Acute on chronic renal failure (4) Pneumonia, unspecified organism (5) Acute respiratory failure with hypoxia (6) Diabetes mellitus with hyperglycemia (7) Generalized weakness Date of Service: Nov 05, 2024 Billing Provider: HEMA DAILEY DNP Common Visit Codes: [id number] INP/OBS CARE (HIGH) HEMA DAILEY DNP Nov 05, 2024 16:18
[2024-11-05] MEDS ORDERED: MORPHINE SULFATE INJ 2 MG/ml SYRG IV PRN (16:30)
[2024-11-05] MEDS ORDERED: NITROGLYCERIN 0.4 MG SL TAB SL PRN (16:30)
[2024-11-05 17:43] LABS: COVID19 ANTIGEN SOFIA FIA NEGATIVE (NEGATIVE)
[2024-11-05] MEDS: ACCU-CHEK COMFORT CURVE STRIP VI SCH (18:52)
[2024-11-05] MEDS: InsuLIN REG 1unit/0.01ml Soln (100units/ml) SC SCH ×2 (19:23→23:00)
[2024-11-05] MEDS: HEPARIN SODIUM (PORCINE) 5000 UNITS/ML 1ML VIAL SC ONE (20:14)
[2024-11-05] MEDS: AZITHROMYCIN 500MG/ 250ML 250 ML IV ONE (21:55)
[2024-11-05] MEDS ORDERED: TACROLIMUS 1 MG CAP PO SCH (22:00)
[2024-11-05] MEDS: ATORVASTATIN 20 MG TAB PO SCH (22:00)
[2024-11-06] VITALS (7 sets, daily range): BP systolic 111–168; BP diastolic 50–98; PULSE 57–88; RESP 16–18; TEMP 97.9–98.7; O2SAT 95–100
[2024-11-06] MEDS: HYDROcodone-ACET 5/325MG TAB PO PRN (00:10)
[2024-11-06 01:05] LABS: Urine Protein, UAD 1+ (Negative)
[2024-11-06 06:40] LABS: Hematocrit 39.1 % (36.0-46.0); Hemoglobin 13.2 g/dL (12.2-16.2); Mean Corpuscular Hemoglobin 29.6 pg (28.0-32.0); Mean Corpuscular Volume 87.2 fL (80.0-100.0); Nucleated Red Blood Cells % 0.1 %
[2024-11-06 07:00] LABS: Alanine Aminotransferase 39 U/L (7-40); Albumin 3.9 g/dL (3.2-4.8); Alkaline Phosphatase 96 U/L (46-116); Anion Gap 9 (5-15); BUN/Creatinine Ratio 18.0 (10.0-20.0); Bilirubin, Total 0.5 mg/dL (0.2-1.0); Carbon Dioxide 26 mmol/L (20-31); Chloride 106 mmol/L (98-107); Glucose 99 mg/dL (74-106); Potassium 4.1 mmol/L (3.5-5.1); Sodium 141 mmol/L (136-145); Total Protein 6.1 g/dL (5.7-8.2)
[2024-11-06 07:01] LABS: Blood Urea Nitrogen 24 mg/dL (9-23); Calcium 8.7 mg/dL (8.7-10.4)
[2024-11-06] MEDS: AZITHROMYCIN 500MG/ 250ML 250 ML IV SCH (09:49)
[2024-11-06] MEDS: SODIUM CHLORIDE 0.9% 1,000 ML IV SCH (11:00)
--- NOTE | 2024-11-06 11:02 | DVHPN2 ---
Progress Note Date Seen: Nov 06, 2024 Medical Necessity Reason Pt with a Central, PICC or Fol: No Subjective Patient reports: No new complaints Review of Systems: HEENT:Normal, CVS:Normal, RESPIRATORY:Normal, GI:Normal, :Normal, MSK:Normal, NEURO:Normal Objective vital signs Vital Sign Date Time Temp Pulse Resp B/P (MAP) Pulse Ox O2 Delivery O2 Flow Rate FiO2 11/06/24 09:48 168/69 11/06/24 09:00 97.9 71 18 98 97.9 11/06/24 00:33 Nasal Cannula* 2 28 Total Intake and Output 11/05/24 11/05/24 11/06/24 15:00 23:00 07:00 Intake Total 500 ml Output Total 200 ml Balance 300 ml medications Current Medications Medications Dose Ordered Sig/Marcello Route Start Time Stop Time Status Last Admin Dose Admin Amlodipine Besylate 5 mg DAILY PO 11/06/24 10:00 11/06/24 09:48 5 MG Atorvastatin Calcium 20 mg HS PO 11/05/24 22:00 11/05/24 22:00 20 MG Ceftriaxone Sodium 50 ml @ 100 mls/hr DAILY@09 IV 11/06/24 09:00 11/06/24 08:52 100 MLS/HR Azithromycin 250 ml @ 125 mls/hr DAILY IV 11/06/24 10:00 11/06/24 09:49 125 MLS/HR Tacrolimus 2 mg BID PO 11/05/24 22:00 Hold Diagnostic Test (Pha) 1 strip ACHS 11/05/24 17:00 11/06/24 06:13 1 STRIP Insulin Human Regular HS SC 11/05/24 22:00 11/05/24 23:00 6 UNITS Insulin Human Regular AC SC 11/05/24 17:00 11/05/24 19:23 15 UNITS Dextrose 50 ml UD PRN IV 11/05/24 14:30 Acetaminophen/ Hydrocodone Bitart 1 tab Q4HP PRN PO 11/05/24 14:30 11/06/24 00:10 1 TAB Ondansetron HCl 4 mg Q4HP PRN IV 11/05/24 14:30 Docusate Sodium 100 mg BIDPRN PRN PO 11/05/24 14:30 Tramadol HCl 50 mg Q4HP PRN PO 11/05/24 14:30 11/06/24 08:53 50 MG Nitroglycerin 0.4 mg Q5MINP PRN SL 11/05/24 16:30 Morphine Sulfate 2 mg Q30M PRN IV 11/05/24 16:30 Sodium Chloride 1,000 ml @ 60 mls/hr [id number] IV 11/06/24 11:00 UNV Examination: GENERAL:Normal, HEENT:Normal, NECK:Normal, LUNGS:Normal, LUNGS:Abnormal (on oxygen), CVS:Normal, ABDOMEN:Normal, MSK:Normal, MSK:Abnormal (right foot surgery, healed wound), SKIN:Normal, NEURO:Normal, :Normal laboratory and microbiology Laboratory Tests 11/06/24 05:54 Test 11/06/24 05:54 Range/Units Serum Glucose 99 74-106 mg/dL Problem List/Assessment/Plan Problem List/Assessment/Plan #1 acute resp failure ? pneumonia/sepsis: ct chest, iv antibiotics #2 ?dvt: doppler both legs #3 dm: ssi #4 htn #5 morbid obesity #6 s/p renal txp: resume meds #7 acute renal failure ?vasomotor nephropathy #8 s/p right foot surgery #9 functional quadriplegia #10 uti: culture advance care planning- full code- time spent 19 mins Plan discussed with: Patient My Orders My Orders Orders - DESMOND MARTINEZ MD Procedure Category Date Status Time Sodium Chloride 0.9% PHA 11/06/24 Logged 11:00 Basic Metabolic Panel LAB 11/07/24 Verified 06:00 Complete Blood Count LAB 11/07/24 Verified 06:00 Hemoglobin A1c LAB 11/07/24 Verified 06:00 Thyroid Stimulating LAB 11/07/24 Verified Hormone 05:[address] 11/06/24 Logged 10:54 Echo 2d Mode Cardiac US 11/06/24 Logged DOP 10:54 Bilat Lower Dvt US 11/06/24 Logged 10:54 Urine Bacterial LUDWIG 11/06/24 Transmitted Culture 10:56 Date of Service: Nov 06, 2024 Billing Provider: DESMOND MARTINEZ MD Common Visit Codes: [id number] INP/OBS CARE(HIGH) Secondary Visit Codes: [id number] CARE PLAN 30 MINUTES DESMOND MARTINEZ MD Nov 06, 2024 11:02
[2024-11-06] MEDS: METOPROLOL SUCCINATE XL 50 MG TAB PO ONE (11:30)
--- NOTE | 2024-11-06 13:33 | DVH ---
EXAM: CT CHEST WITHOUT CONTRAST History: pneumonia Comparison Study: None TECHNIQUE: Multidetector CT of the chest was performed. Imaging was performed without IV contrast. Ax ial, coronal, and sagittal multiplanar reformats were obtained from the axial data set by the technol ogeliezer. Radiation Dose : CTDI vol 23.67 mGy, DLP 766.97 mGy*cm. Findings: Lungs: Bilateral linear atelectasis versus scarring. The lungs are otherwise clear. Pleura: Unremarkable Heart/Great vessels: Borderline cardiomegaly. Enlarged pulmonary trunk. Severe coronary atheroscleros is. Mediastinum: Prominent bilateral hilar nodes and right paratracheal lymph node. Soft tissues/Bones: Mild multilevel degenerative changes of the thoracic spine. Severe compression fr acture of T12, no retropulsion. Chronic bilateral rib fracture deformities. Cholelithiasis. Impression: 1. No acute cardiopulmonary disease. 2. Borderline cardiomegaly with enlarged pulmonary trunk. Correlate for pulmonary artery hypertensio n. 3. Prominent bilateral hilar nodes and right paratracheal lymph node, nonspecific.
--- NOTE | 2024-11-06 14:10 | DVH ---
BILATERAL LOWER EXTREMITY VENOUS DUPLEX REASON FOR EXAMINATION: Bilateral lower extremity pain and swelling. Elevated D-dimer. COMPARISON: None TECHNIQUE: Using real-time freeze-frame technique with a high-frequency transducer, multiple longitu dinal and transverse sections were obtained. Simultaneous color flow and spectral Doppler imaging wa s performed. FINDINGS: There is good visualization of the deep venous system with no intraluminal filling defects identified. Normal venous compressibility is seen and there is flow augmentation. Color flow Doppler imaging is unremarkable. IMPRESSION: NO EVIDENCE OF DEEP VENOUS THROMBOSIS.
--- NOTE | 2024-11-06 18:07 | DVHSR ---
APPROVED REPORT EXAM: LIMITED Two-dimensional and M-mode echocardiogram with Doppler and color Doppler. Blood Pressure: 168/69 mmHg INDICATION Hypertension RISK FACTORS Obesity: Height: 5' 3", Weight: 221 DIMENSIONS LVDd5.0 (3.8-5.7cm)LA (2D)3.8 (1.9-4.0cm)Aortic Root2.8 (2.0-3.7cm) LVDs3.4 (2.5-4.0cm)LA (MM) (1.9-4.0cm)Aortic Cusp Exc1.7 (1.5-2.0cm) EF (%) 58.0 (55-70%)Rt. Atrium3.9 (1.9-4.0cm)Asc. Aorta cm IVSd0.9 (0.7-1.1cm)RV (D) (1.8-2.4cm) PWd1.0 (0.7-1.1cm) Mitral Valve MitralMitral Stenosis E wave1.00m/sMV Mean GR.mmHg A wave1.40m/sMV Peak GR.mmHg E/A ratio0.72D MVAcm2 Aortic Valve Aortic ValveAortic Stenosis V11.10m/Maliha Mean GR.8mmHg V21.90m/Maliha Peak GR.15mmHg LVOT Diameter2.1 (1.8-2.4cm)Doppler AVA2.00cm2 Pulmonic Valve V21.00m/s Tricuspid Valve TR Velocity2.80m/s [id number] Other Information Quality : Technically LimitedRhythm : Technically limited study due to body habitus. Conclusion Technically good study sinus rhythm. Normal chamber sizes. Valves are normal. EF of 60% with normal RV function. Mild TR. RVSP of 40 mmHg. No pericardial effusion masses or vegetations.
[2024-11-06] MEDS: MYCOPHENOLATE 500 MG TAB PO SCH (22:03)
[2024-11-07] VITALS (7 sets, daily range): BP systolic 114–155; BP diastolic 60–75; PULSE 56–70; RESP 17–18; TEMP 98.3–98.7; O2SAT 95–98
[2024-11-07 06:29] LABS: Hematocrit 38.2 % (36.0-46.0); Hemoglobin 12.7 g/dL (12.2-16.2); Mean Corpuscular Hemoglobin 29.7 pg (28.0-32.0); Mean Corpuscular Volume 89.2 fL (80.0-100.0); Nucleated Red Blood Cells % 0.0 %
[2024-11-07 06:48] LABS: Anion Gap 9 (5-15); Carbon Dioxide 24 mmol/L (20-31); Chloride 102 mmol/L (98-107); Potassium 4.4 mmol/L (3.5-5.1)
[2024-11-07 06:49] LABS: Calcium 8.8 mg/dL (8.7-10.4)
[2024-11-07 06:51] LABS: Sodium 135 mmol/L (136-145)
[2024-11-07 06:54] LABS: BUN/Creatinine Ratio 14.2 (10.0-20.0); Blood Urea Nitrogen 18 mg/dL (9-23)
[2024-11-07 06:55] LABS: Glucose 230 mg/dL (74-106)
[2024-11-07] MEDS: METOPROLOL SUCCINATE XL 50 MG TAB PO SCH (09:32)
[2024-11-07] MEDS ORDERED: TEMAZEPAM 15 MG CAP PO PRN (11:00)
--- NOTE | 2024-11-07 11:09 | DVHDS2 ---
Discharge Summary Date of Admission Nov 05, 2024 at 16:16 Date of Discharge: Nov 07, 2024 Labs/Diagnostic Data: Laboratory Results Test 11/07/24 06:05 11/07/24 05:44 11/06/24 05:54 11/06/24 00:30 POC Glucose 236 mg/dl (70-106) White Blood Count 6.4 10^3/uL (4.4-10.8) Red Blood Count 4.28 10^6/uL (4.0-5.20) Hemoglobin 12.7 g/dL (12.2-16.2) Hematocrit 38.2 % (36.0-46.0) Mean Corpuscular Volume 89.2 fL (80.0-100.0) Mean Corpuscular Hemoglobin 29.7 pg (28.0-32.0) Mean Corpuscular Hemoglobin Concent 33.2 g/dL (32.0-36.0) Red Cell Distribution Width 15.3 % (11.8-14.3) Platelet Count 166 10^3/uL (140-450) Mean Platelet Volume 9.9 fL (6.9-10.8) Neutrophils (%) (Auto) 65.1 % (37.0-80.0) Lymphocytes (%) (Auto) 18.7 % (10.0-50.0) Monocytes (%) (Auto) 11.9 % (0.0-12.0) Eosinophils (%) (Auto) 3.9 % (0.0-7.0) Basophils (%) (Auto) 0.4 % (0.0-2.0) Neutrophils # (Auto) 4.2 10 ^3/uL (1.6-8.6) Lymphocytes # (Auto) 1.2 10 ^3/uL (0.4-5.4) Monocytes # (Auto) 0.8 10 ^3/uL (0-1.3) Eosinophils # (Auto) 0.2 10 ^3/uL (0-0.8) Basophils # (Auto) 0 10 ^3/uL (0-0.2) Nucleated Red Blood Cells 0.0 % Sodium Level 135 mmol/L (136-145) Potassium Level 4.4 mmol/L (3.5-5.1) Chloride Level 102 mmol/L (98-107) Carbon Dioxide Level 24 mmol/L (20-31) Anion Gap 9 (5-15) Blood Urea Nitrogen 18 mg/dL (9-23) Creatinine 1.27 mg/dL (0.550-1.02) Glomerular Filtration Rate Calc 48 mL/min (>90) BUN/Creatinine Ratio 14.2 (10.0-20.0) Serum Glucose 230 mg/dL (74-106) Hemoglobin A1c 8.5 % A1C (<5.7) Calcium Level 8.8 mg/dL (8.7-10.4) Thyroid Stimulating Hormone (TSH) 5.05 uIU/mL (0.55-4.78) Total Bilirubin 0.5 mg/dL (0.2-1.0) Aspartate Amino Transferase (AST) 21 U/L (13-40) Alanine Aminotransferase (ALT) 39 U/L (7-40) Alkaline Phosphatase 96 U/L (46-116) Total Protein 6.1 g/dL (5.7-8.2) Albumin 3.9 g/dL (3.2-4.8) Urine Color Light-yellow (Yellow) Urine Clarity Turbid (Clear) Urine pH 6.0 (5.0-9.0) Urine Specific [place] 1.017 (1.001-1.035) Urine Protein 1+ (Negative) Urine Ketones Negative (Negative) Urine Blood Trace /uL (Negative) Urine Nitrite 2+ (Negative) Urine Bilirubin Negative (Negative) Urine Urobilinogen Normal mg/dL (Negative) Urine Leukocyte Esterase 2+ /uL (Negative) Urine RBC 2 /hpf (0 - 4) Urine Microscopic WBC 90 /HPF (0-5) Urine Squamous Epithelial Cells Few /hpf (<5) Urine Bacteria Few /hpf (None Seen) Urine Glucose 4+ mg/dL (Normal) Test 11/05/24 16:51 11/05/24 14:29 11/05/24 11:19 SARS-CoV-2 Antigen (Rapid) Negative (NEGATIVE) Troponin I High Sensitivity 12 ng/L (</=34) D-Dimer, Quantitative 1.93 mg/L FEU (0.0-0.49) Other Laboratory Tests 11/07/24 05:44 Brief Hx & Hospital Course: see dictated note Condition at Discharge: Fair Final Diagnosis/Problems List pneumonia Discharge Disposition: Home Discharge Instruct/Medications Diet: Cardiac 2g Na,low cholest Activity: No Restrictions, As Tolerated Follow Up/Referral: fu with marcella Medications: per mar Scheduled Amlodipine Besylate (Norvasc Tablet), 1 TAB PO DAILY, (Reported) Atorvastatin Calcium (Atorvastatin Calcium), 1 TAB PO QPM, (Reported) Fluconazole (Diflucan), 1 TAB PO DAILY Metoprolol Succinate (Metoprolol Succinate Er), 1 TAB PO DAILY, (Reported) Piperacillin Sodium-Tazobactam (Piperacillin Sodium/Tazob 3-0.375 gm), 1 INJ IV q8 Prednisone (Prednisone), 5 MG PO DAILY, (Reported) Miscellaneous Medications Gabapentin (Gabapentin), 250 MG PO, (Reported) Mycophenolate Mofetil (Cellcept), 500 MG PO, (Reported) Tacrolimus (Prograf), 0.2 MG PO, (Reported) Tramadol Hcl (Tramadol Hcl), 50 MG PO, (Reported) Discharge Statement: "Patient was advised to return to the ER or call 911 if any headaches, dizziness, shortness of breath, chest pain, abdominal pain, bleeding, fevers, or worsening of medical condition. Patient was counseled about treatment plan, medications, possible side effects, patientverbalized understanding. All questions were answered to the best of my ability. This discharge took greater then 30 minutes in planning, reviewing documentation, counseling the patient, and discussing with other team members." ASSESSMENT ASSESSMENT Assessment pneumonia Date of Service: Nov 07, 2024 Billing Provider: DESMOND MARTINEZ MD Common Visit Codes: 93932-QXI/OBS DISCH DAY >30min DESMOND MARTINEZ MD Nov 07, 2024 11:09
--- NOTE | 2024-11-07 11:48 | DVHDS ---
DATE OF DISCHARGE: 11/07/2024 HISTORY OF PRESENT ILLNESS: The patient is a 63-year-old lady who was admitted with a history of generalized weakness, dizziness, nausea and low oxygen saturations. The patient has a history of renal transplant, diabetes, hypertension and hyperlipidemia. HOSPITAL COURSE: The patient had a chest x-ray that showed evidence of increased interstitial prominence. The patient had a CT of the chest that showed enlarged pulmonary trunk with bilateral hilar and right paratracheal lymph node. The patient had a low-grade fever of 99.5 that has since improved. Her white count has been within normal limits. Creatinine was elevated at 1.4 that is improved to 1.2 at the time of transfer. The patient will now be transferred to [facility] for further management. Echocardiogram done showed ejection-fraction of 60%, with a right ventricular systolic pressure of 40 mmHg. Doppler of lower extremities was negative for DVT. FINAL DIAGNOSES: Therefore, * Acute respiratory failure. * Likely pneumonia with sepsis. * Diabetes mellitus. * Hypertension. * Morbid obesity. * History of renal transplant. * Acute renal failure, questionable vasomotor nephropathy. * History of right foot surgery. * Functional quadriplegia. * UTI. * Pulmonary hypertension. Time spent in discharge planning and review of plan with the patient and nursing was 39 minutes. MD YUDELKA Kaiser/MAURY TID: [id number] RECEIPT: [id number]
[2024-11-07] MEDS ORDERED: GABAPENTIN 300 MG CAP PO SCH (18:00)
== END 2024-11-07 20:12 | disposition short-term general hospital (02) | DRG 871 ==
LOC: EDBD 10:50 → ER 10:50 → OVERFLOW 16:16 → TELE-CENTR 22:42
PROVIDERS: ADMIT Internal Medicine; ATTEND Internal Medicine
DX: A41.59 Other Gram-negative sepsis (principal); J15.69 Pneumonia due to other Gram-negative bacteria; J96.01 Acute respiratory failure with hypoxia; N17.0 Acute kidney failure with tubular necrosis; R53.2 Functional quadriplegia; J15.9 Unspecified bacterial pneumonia; N39.0 Urinary tract infection, site not specified; Z94.0 Kidney transplant status; Z68.41 Body mass index [BMI] 40.0-44.9, adult; Z20.822 Contact with and (suspected) exposure to COVID-19; E11.65 Type 2 diabetes mellitus with hyperglycemia; N18.9 Chronic kidney disease, unspecified; E66.01 Morbid (severe) obesity due to excess calories; I12.9 Hypertensive chronic kidney disease with stage 1 through stage 4 chronic kidney disease, or unspecified chronic kidney disease; E11.22 Type 2 diabetes mellitus with diabetic chronic kidney disease; E78.5 Hyperlipidemia, unspecified; I27.20 Pulmonary hypertension, unspecified; Z88.6 Allergy status to analgesic agent
CPT/HCPCS: 36415; 71045; 71250; 80048; 80053; 81001; 82962; 83036; 84443; 84484; 85025; 85379; 87086; 87426; 93005; 93306; 93970; 99291; G0378; J1815; J7517